=== PATIENT | female | born 2000 | race American Indian/Alaskan Native ===

== ENCOUNTER 2019-02-18 21:55 | Emergency (ER) | payer MEDICAID ==
--- NOTE | 2019-02-18 22:11 | Emergency Department Report ---
Blank Doc - Documentation Documentation: 18 y o female presents to Ed cc of mid abd pain x wednesday reports vaginal delivery 3 months ago denies f/n had one epi of vomitting ua/upt LMP 02/09/19
[2019-02-18 22:34] LABS: Basophils # (Auto) 0.1 K/mm3 (0.0-0.1); Basophils % (Auto) 0.4 % (0.0-1.8); Eosinophils # (Auto) 0.1 K/mm3 (0.0-0.4); Eosinophils % (Auto) 0.9 % (0.0-4.3); Hematocrit 35.3 % (30.3-42.9); Lymphocytes # (Auto) 2.7 K/mm3 (1.2-5.4); Lymphocytes % (Auto) 23.3 % (13.4-35.0); Mean Corpuscular HGB Conc 34 % (30-34); Mean Corpuscular Volume 90 fl (79-97); Monocytes # (Auto) 0.5 K/mm3 (0.0-0.8); Monocytes % (Auto) 4.7 % (0.0-7.3); Platelet Count 309 K/mm3 (140-440); Red Blood Count 3.94 M/mm3 (3.65-5.03); Red Cell Distribution Width 13.1 % (13.2-15.2)
[2019-02-18 22:45] LABS: BUN/Creatinine Ratio 23; Blood Urea Nitrogen 16 mg/dL (7-17); Calcium 9.8 mg/dL (8.4-10.2); Hemolysis Index 7
[2019-02-18 22:58] LABS: HCG Qualitative,Urine Negative (Negative)
[2019-02-18 23:00] LABS: Bacteria,Urine 1+ /HPF (Negative); Bilirubin,Urine NEG (Negative); Blood,Urine NEG (Negative); Color,Urine Yellow (Yellow); Mucus,Urine 1+ /HPF; Urobilinogen,Urine < 2.0 mg/dL (<2.0)
[2019-02-18] MEDS ORDERED: ZOFRAN IV ONE (23:12)
[2019-02-18] MEDS ORDERED: MORPHINE IV ONE (23:12)
[2019-02-18] MEDS ORDERED: BENADRYL IV ONE (23:13)
[2019-02-18] MEDS ORDERED: ROCEPHIN/NS 1 GM/50 ML 1 GM/50 ML BAG IV ONE (23:13)
[2019-02-18] MEDS ORDERED: TORADOL IV ONE (23:15)
[2019-02-18] MEDS: NACL 0.9% 1000 ML 1,000 ML IV ONE ×2 (23:16→23:50)
--- NOTE | 2019-02-19 00:06 | Cat Scan Report ---
PROCEDURE: CT ABDOMEN PELVIS W CON TECHNIQUE: Computerized axial tomography of the abdomen and pelvis was performed after the IV inject ion of iodinated nonionic contrast. CT DOSE LENGTH PRODUCT: 1587.6 mGycm HISTORY: HEMORRHAGE, PELVIC PAIN COMPARISONS: None . FINDINGS: Visualized lower thorax: No significant abnormality. Liver: Normal size and attenuation. Spleen: Normal size and attenuation. Gallbladder and biliary system: Normal. Pancreas: Normal. Adrenals: Normal. Kidneys: Both kidneys have a normal size. No hydronephrosis.. GI tract: There is no evidence of intestinal obstruction. No ileus or enteritis. The appendix and co amira are normal . Lymph nodes and mesentery: Normal. Vasculature: Normal.. Bladder: Normal. Reproductive organs: The uterus size is normal. The uterus is anteverted. No pelvic masses. Peritoneum: No free fluid. Musculoskeletal structures: No significant abnormality. Other: None . IMPRESSION: There is no evidence of intestinal or urinary tract obstruction. No ileus or enteritis. The appendix is normal. . This document is electronically signed by Sunshine Zimmerman DO., February 19 2019 12:04:28 AM ET
--- NOTE | 2019-02-19 01:26 | Emergency Department Report ---
ED Abdominal Pain HPI - General Chief Complaint: Abdominal Pain Stated Complaint: ABD PAIN Time Seen by Provider: 02/18/19 22:08 Source: patient Mode of arrival: Ambulatory Limitations: No Limitations - History of Present Illness Initial Comments: Patient is a A1 18-year-old [place]ag[place] female who is 3 months and presents to the ED with complaint of acute onset and persistent diffuse abdominal pain and tingling sensation all over her body for the last 1 week, worse in the last 2 days. Patient denies dizziness, fever, chills, nausea, vom iting, dysuria, urinary frequency and urgency, vaginal bleeding, vaginal discharge, no back pain, diarrhea, constipation, chest pain, shortness of breath, cough or sore throat. MD Complaint: abdominal pain -: Sudden, week(s) (1) Location: diffuse Radiation: none Migration to: no migration Severity: severe Severity scale (0 -10): 7 Quality: cramping, aching Consistency: constant Improves With: nothing Worsens With: nothing Associated Symptoms: denies: nausea, vomiting, diarrhea, fever, chills, co nstipation, dysuria, hematemesis, hematochezia, melena, hematuria, anorexia, syncope - Related Data Previous Rx's Medication Instructions Recorded Last Taken Type Dicyclomine [Bentyl] 20 mg PO Q6H PRN #24 tablet 02/19/19 Unknown Rx Naproxen [Naprosyn] 500 mg PO Q12H PRN #20 tablet 02/19/19 Unknown Rx Ondansetron [Zofran Odt] 4 mg PO Q6HR #15 tab.rapdis 02/19/19 Unknown Rx Sulfamethoxazole/Trimethoprim 1 each PO Q12H #20 tablet 02/19/19 Unknown Rx [Bactrim DS TAB] Allergies Allergy/AdvReac Type Severity Reaction Status Date / Time milk Allergy Rash Verified 10/03/14 14:25 Penicillins Allergy Unknown Verified 10/03/14 14:25 ED Review of Systems ROS: Stated complaint: ABD PAIN Other details as noted in HPI Comment: All other systems reviewed and negative Constitutional: denies: chills, fever Eyes: denies: eye pain, eye discharge, vision change ENT: denies: ear pain, throat pain Respiratory: denies: cough, shortness of breath, wheezing Cardiovascular: denies: chest pain, palpitations Endocrine: no symptoms reported Gastrointestinal: abdominal pain, hematochezia. denies: nausea, vomiting, diarrhea, constipation, hematemesis, melena Genitourinary: denies: urgency, dysuria, discharge Musculoskeletal: denies: back pain, joint swelling, arthralgia Skin: denies: rash, lesions Neurological: denies: headache, weakness, paresthesias Psychiatric: denies: anxiety, depression Hematological/Lymphatic: denies: easy bleeding, easy bruising ED Past Medical Hx - Past Medical History Previous Medical History?: Yes Hx Asthma: Yes Additional medical history: caratitis - Surgical History Past Surgical History?: No - Social History Smoking Status: Never Smoker Substance Use Type: Marijuana - Medications Home Medications: Home Medications Medication Instructions Recorded Confirmed Last Taken Type Dicyclomine [Bentyl] 20 mg PO Q6H PRN #24 tablet 02/19/19 Unknown Rx Naproxen [Naprosyn] 500 mg PO Q12H PRN #20 tablet 02/19/19 Unknown Rx Ondansetron [Zofran Odt] 4 mg PO Q6HR #15 tab.rapdis 02/19/19 Unknown Rx Sulfamethoxazole/Trimethoprim 1 each PO Q12H #20 tablet 02/19/19 Unknown Rx [Bactrim DS TAB] ED Physical Exam - General Limitations: No Limitations General appearance: alert, in no apparent distress - Head Head exam: Present: atraumatic, normocephalic, normal inspection - Eye Eye exam: Present: normal appearance, PERRL, EOMI. Absent: scleral icterus, conjunctival injection, nystagmus Pupils: Present: normal accommodation - ENT ENT exam: Present: normal exam, normal orophraynx, mucous membranes moist. Absent: TM's normal bilaterally, normal external ear exam - Neck Neck exam: Present: normal inspection, full ROM. Absent: tenderness, meningismus, lymphadenopathy, thyromegaly - Respiratory Respiratory exam: Present: normal lung sounds bilaterally. Absent: respiratory distress, wheezes, rales, rhonchi, chest wall tenderness, accessory muscle use, decreased breath sounds - Cardiovascular Cardiovascular Exam: Present: regular rate, normal rhythm, normal heart sounds. Absent: systolic murmur, diastolic murmur, rubs, gallop - GI/Abdominal GI/Abdominal exam: Present: soft, tenderness (diffuse), normal bowel sounds. Absent: guarding, rebound, hyperactive bowel sounds, hypoactive bowel sounds, organomegaly, mass - Rectal Rectal exam: Present: deferred - Extremities Exam Extremities exam: Present: normal inspection, full ROM, normal capillary refill - Back Exam Back exam: Present: normal inspection, full ROM. Absent: tenderness, CVA tenderness (R), CVA tenderness (L), muscle spasm, paraspinal tenderness, vertebral tenderness - Neurological Exam Neurological exam: Present: alert, oriented X3, CN II-XII intact, normal gait, motor sensory deficit, reflexes normal - Psychiatric Psychiatric exam: Present: normal affect, normal mood - Skin Skin exam: Present: warm, dry, intact, normal color. Absent: rash ED Course Vital Signs 02/18/19 22:08 Temperature 98.2 F Pulse Rate 73 Respiratory 18 Rate Blood Pressure 123/74 O2 Sat by Pulse 100 Oximetry - Reevaluation(s) Reevaluation #1: 02/19/19 01:25 Patient is alert and oriented 3 and is not in any distress. Patient was treated in the ED for pain. Lab test results are reviewed and are unremarkable except for mild leukocytosis of 11,400 and significant urinary tract infection. Abdomen pelvis CT scan with contrast shows no acute pathology in the pelvic region. The patient was also treated in the ED with Rocephin 1 g IV 1. On reevaluation, patient's pain is well-controlled with medications and patient is discharged home on pain medications and antibiotics and advised to follow up with her [facility] physician or primary care physician in 7-10 days for reevaluation. 02/19/19 01:26 ED Medical Decision Making - Lab Data Result diagrams: 02/18/19 22:18 02/18/19 22:18 - Radiology Data Radiology results: report reviewed, image reviewed Abdomen pelvis CT scan w/contrast shows no acute pathology or abnormal findings in the abdomen or pelvic region. - Medical Decision Making Patient is alert and oriented 3 and is not in any distress. Patient was treated in the ED for pain. Lab test results are reviewed and are unremarkable except for mild leukocytosis of 11,400 and significant urinary tract infection. Abdomen pelvis CT scan with contrast shows no acute pathology in the pelvic region. The patient was also treated in the ED with Rocephin 1 g IV 1. Therefore the patient's symptoms are likely due to acute urinary tract infection. On reevaluation, patient's pain is well-controlled with medications and patient is discharged home on pain medications and antibiotics and advised to follow up with her [facility] physician or primary care physician in 7-10 days for reevaluation. - Differential Diagnosis Abdominal pain; Acute UTI Critical care attestation.: If time is entered above; I have spent that time in minutes in the direct care of this critically ill patient, excluding procedure time. ED Disposition Clinical Impression: Acute urinary tract infection Abdominal pain Qualifiers: Abdominal location: generalized Qualified Code(s): R10.84 - Generalized abdomin al pain Disposition: TO HOME OR SELFCARE Is pt being admited?: No Does the pt Need Aspirin: No Condition: Stable Instructions: Abdominal Pain (ED), Urinary Tract Infection in Women (ED) Additional Instructions: Take medications with him, and he was unable up with your primary care physician or [facility] physician in 7-10 days for reevaluation. Return to the ED immediately if symptoms get worse. Prescriptions: Sulfamethoxazole/Trimethoprim [Bactrim DS TAB] 1 each PO Q12H #20 tablet Dicyclomine [Bentyl] 20 mg PO Q6H PRN #24 tablet PRN Reason: Pain , Severe (7-10) Naproxen [Naprosyn] 500 mg PO Q12H PRN #20 tablet PRN Reason: Pain , Severe (7-10) Ondansetron [Zofran Odt] 4 mg PO Q6HR #15 tab.rapdis Referrals: ISABELLA COLON MD [Primary Care Provider] - 3-5 Days Time of Disposition: 01:31 Print Language: WELSH
[2019-02-19 02:07] VITALS: BP 145/61
== END 2019-02-19 02:09 | disposition home or self-care (01) ==
LOC: ED 21:55
DX: N39.0 Urinary tract infection, site not specified (principal); R20.2 Paresthesia of skin; J45.909 Unspecified asthma, uncomplicated; F12.10 Cannabis abuse, uncomplicated; Z91.011 Allergy to milk products; Z88.0 Allergy status to penicillin
CPT/HCPCS: 36415; 74177; 80048; 81001; 81025; 83690; 85025; 87076; 87086; 87186; 96365; 96375; 99284; J0696; J1200; J1885; Q9967